=== PATIENT | female | born 2005 | race Caucasian/White ===

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

== ENCOUNTER 2023-04-11 12:56 | Emergency (ER) | payer OTHER, SELFPAY ==
[2023-04-11 13:10] VITALS: BP 119/69; PULSE 72; RESP 18; TEMP 37.3; O2SAT 99
--- NOTE | 2023-04-11 13:19 | ED.EAR ---
HPI - Ear Problem General Chief complaint: Ear Stated complaint: Dizziness,Multiple Complaints Time Seen by Provider: 04/11/23 13:20 Source: patient Mode of arrival: ambulatory Limitations: no limitations History of Present Illness HPI Narrative: 18-year-old female presented for complaint of dizziness, bilateral ear pain, and vomiting since yesterday. Dizziness is worse with changing positions and head movements. She denies associated abdominal pain, diarrhea, fevers or chills. States vomiting is not necessarily associated with dizziness. States she has dizzy episodes every month. Has not taken anything for symptoms. Started lamictal about 2 months ago. MD Complaint: ear pain Related Data Home Medications Medication Instructions Recorded Confirmed escitalopram oxalate 20 mg tablet 20 mg PO DAILY 11/06/19 04/11/23 lamotrigine 25 mg tablet 25 mg PO DAILY 04/11/23 04/11/23 Allergies Allergy/AdvReac Type Severity Reaction Status Date / Time clindamycin Allergy Intermediate Hives / Verified 04/11/23 12:59 Red Face Review of Systems Review of Systems: CONSTITUTIONAL: Denies malaise, chills, or fever. EYES: Denies visual changes, redness, or discharge. ENT: Denies rhinorrhea, congestion, sinus pain, and sore throat. Reports ear pain CARDIOVASCULAR: Denies chest pain, palpitations, or edema. RESPIRATORY: Denies cough or dyspnea. GASTROINTESTINAL: Reports nausea, vomiting, Denies abdominal pain, diarrhea SKIN: Denies rash or itching. MUSCULOSKELETAL: Denies myalgia. NEUROLOGIC: Denies headache. Reports dizziness All systems reviewed & are unremarkable except as noted in HPI and below PMFSH Past Medical History Medical History Anxiety Surgical History Surgical History History of tonsillectomy and adenoidectomy Social History Social History Smoking status: Never smoker Living arrangements: with family Occupation/Education: student Gender identity (if verbalized by the patient): Female Comments At time of signature, agree with nursing past medical, surgical, social and family history. There is no relevant family history pertinent to the presenting complaint Exam Narrative: GENERAL: Well-appearing, well-nourished, and in no acute distress. HEAD: Normocephalic EYES: PERRLA, EOMI, conjunctivae clear ENT: Nares clear. Mucous membranes moist. TMs pearly pan with normal light reflex bilaterally; no tragal tenderness. Oropharynx not erythematous. Tonsils absent. NECK: Supple. No lymphadenopathy CHEST: Clear to auscultation, breath sounds equal. HEART: Regular rate and rhythm. No murmur heard. ABD: soft flat nontender SKIN: Warm, dry, no rash. NEURO: Alert and oriented x3. No deficits. PSYCH: Normal mood and affect Course Course Emergency Course: Patient is aware of diagnosis, understands and agrees to treatment plan. Anticipatory guidance given. Patient agrees to follow-up as directed and is aware of reasons to seek care at the emergency department. Portions of this record may have been created with voice recognition software Level of Care: Express Care Visit Vital Signs Vital signs: Vital Signs Temperature 99.2 F 04/11/23 13:10 Pulse Rate 72 04/11/23 13:10 Respiratory Rate 18 04/11/23 13:10 Blood Pressure 119/69 04/11/23 13:10 Pulse Oximetry 99 04/11/23 13:10 Oxygen Delivery Room Air 04/11/23 13:10 Temperature 99.2 F 04/11/23 13:10 Pulse Rate 72 04/11/23 13:10 Respiratory Rate 18 04/11/23 13:10 Blood Pressure 119/69 04/11/23 13:10 Pulse Oximetry 99 04/11/23 13:10 Oxygen Delivery Room Air 04/11/23 13:10 Reviewed Medical Decision Making MDM Narrative Medical decision making narrative: Discussed physical exam findings, advised supportive measures and signs/symptoms
== END 2023-04-11 13:38 | disposition home or self-care (01) ==
PROVIDERS: Emergency Provider Nurse Practitioner Family; PCP Physician Assistant
DX: R42 Dizziness and giddiness (principal); R11.10 Vomiting, unspecified; F41.9 Anxiety disorder, unspecified
CPT/HCPCS: 99213; G0463

== ENCOUNTER 2023-11-12 08:19 | Emergency (ER) | payer OTHER, SELFPAY ==
[2023-11-12] VITALS (9 sets, daily range): BP systolic 109–136; BP diastolic 67–97; PULSE 71–119; RESP 11–20; TEMP 36.5–37.1; O2SAT 97–100
[2023-11-12 09:04] LABS: Basophils Percent Auto 0.2 % (0.2-1.2); Eosinophils Percent Auto 0.2 % (0-4.4); Hematocrit 42.5 % (37.0-47.0); Hemoglobin 14.1 g/dL (12.0-15.0); Immature Granulocyte Absolute 0.02 K/mm3 (0.00-0.031); Immature Granulocyte Percent A 0.2 % (0-0.5); Lymphocytes Absolute Auto 0.66 K/mm3 (0.9-3.2); Lymphocytes Percent Auto 5.5 % (18.3-44.2); Mean Corpuscular HGB Conc 33.2 g/dl (32-36); Mean Corpuscular Hemoglobin 28.2 pg (26-34); Mean Platelet Volume 10.2 fl (7.4-10.4); Monocytes Absolute Auto 0.5 K/mm3 (0.1-0.6); Monocytes Percent Auto 3.8 % (2.6-8.5); Neutrophils Absolute Auto 10.9 K/mm3 (1.3-6.7); Neutrophils Percent Auto 90.1 % (45.5-73.1); Platelet Count Result 251 k/mm3 (150-375); Red Cell Distribution Width 12.3 % (11.5-14.5); White Blood Count 12.1 K/mm3 (4.5-10.0)
[2023-11-12 09:10] LABS: Appearance Urine Turbid (Clear); Bacteria Urine 4+ /hpf; Bilirubin Urine Negative (Negative); Blood Urine Negative (Negative); Color Urine Yellow (Yellow); Glucose Urine UA Negative (Negative); Ketones Urine 2+ mg/dL (Negative); Leukocyte Esterase Ur 1+ LEU/UL (Negative); Need Manual Microscopic Reviewed; Nitrate Urine Negative (Negative); Non Pathogenic Casts 0-2; Protein Urine 1+ mg/dL (Negative); Specific Grav Ur 1.033 (1.001-1.035); Squamous Epithelial Cell Urine Many /hpf (Few); WBC Urine >100 /hpf; pH Urine 6.5 (5.0-9.0)
[2023-11-12 09:12] LABS: Add Urine Microscopic? YES
--- NOTE | 2023-11-12 09:13 | ED.NAVMDI ---
HPI - Nausea/Vomiting/Diarrhea General Chief complaint: Nausea/Vomiting/Diarrhea Stated complaint: N/V/D Time Seen by Provider: 11/12/23 08:50 History of Present Illness HPI Narrative: 18-year-old female presenting to the emergency department for evaluation of nausea vomiting and diarrhea that started approximately 10:00 p.m. last night. Patient states she has been attempting to eat ice chips but she is still having emesis from that. Patient does complain of suprapubic abdominal pain and epigastric pain. Patient denies any prior abdominal surgical history. Related Data Home Medications Medication Instructions Recorded Confirmed escitalopram oxalate 20 mg tablet 20 mg PO DAILY 11/06/19 04/11/23 lamotrigine 25 mg tablet 25 mg PO DAILY 04/11/23 04/11/23 Allergies Allergy/AdvReac Type Severity Reaction Status Date / Time clindamycin Allergy Intermediate Hives / Verified 11/12/23 08:35 Red Face Review of Systems Review of Systems: All systems reviewed & are unremarkable except as noted in HPI and below PMFSH Past Medical History Medical History Anxiety Surgical History Surgical History History of tonsillectomy and adenoidectomy Social History Social History Smoking status: Never smoker Living arrangements: with family Occupation/Education: student Gender identity (if verbalized by the patient): Female Exam Narrative: APPEARANCE: Well appearing, no pain, no distress, well-nourished. HEAD: normocephalic, atraumatic. EYES: PERRLA/EOMI, conjunctivae clear. NOSE: Normal no drainage NECK: Supple. No adenopathy, no masses. RESPIRATORY: Airway patent, respirations nonlabored. Clear to auscultation bilaterally, no rales, rhonchi, wheezing. CARDIOVASCULAR: Regular rate and rhythm without murmurs rubs or gallops. ABDOMINAL: Soft, suprapubic and epigastric abdominal tenderness to palpation MUSCULOSKELETAL: Moves all extremities. Strength/ROM intact, No edema, No calf tenderness. NEURO: Alert. Cranial nerves II through XII intact. Grossly intact SKIN: Warm, dry. Normal Color Course Course Emergency Course: 18-year-old female presenting to the emergency department for evaluation of nausea vomiting and diarrhea. Patient was afebrile But does have a leukocytosis of 12.1. Stable hemoglobin. Patient's UA was concerning for urinary tract infection and patient was treated with 1 g of IV Rocephin. Patient states she is now tolerating p.o. and has kept down water and apple juice. Patient is comfortable the plan for discharge to home. Patient was educated on reasons to return to the emergency department. All questions and concerns were addressed. Vital Signs Vital signs: Vital Signs Temperature 97.7 F 11/12/23 08:26 Pulse Rate 119 H 11/12/23 08:26 Respiratory Rate 18 11/12/23 08:26 Blood Pressure 136/85 11/12/23 08:26 Pulse Oximetry 97 11/12/23 08:26 Oxygen Delivery Room Air 11/12/23 08:26 Temperature 98.7 F 11/12/23 08:36 Pulse Rate 94 11/12/23 11:59 Respiratory Rate 20 11/12/23 11:59 Blood Pressure 113/79 11/12/23 11:59 Pulse Oximetry 99 11/12/23 11:59 Oxygen Delivery Room Air 11/12/23 08:36 MDM - Nausea/Vomiting/Diarrhea Differential Diagnosis Differential diagnosis: Likely traveler's diarrhea and gastroenteritis Lab Data Attestation: I reviewed the patient's lab results. 11/12/23 08:50 11/12/23 08:50 Labs: Lab Results 11/12/23 11/12/23 Range/Units 08:29 08:50 WBC 12.1 H (4.5-10.0) K/mm3 RBC 5.00 (4.2-5.4) M/mm3 Hgb 14.1 (12.0-15.0) g/dL Hct 42.5 (37.0-47.0) % MCV 85.0 (80-100) fl MCH 28.2 (26-34) pg MCHC 33.2 (32-36) g/dl RDW 12.3 (11.5-14.5) % Plt Count 251 (150-375) k/mm3 MPV 10.2 (7.4-10.4)
[2023-11-12 09:27] LABS: Alanine Aminotransferase 35 U/L (6-35); Albumin Level 4.5 g/dL (3.5-5.1); Alkaline Phosphatase 92 U/L (38-126); Anion Gap 9 mmol/L (8-16); Aspartate Amino Transferase 32 U/L (14-36); Bilirubin,Total 0.6 mg/dL (0.2-1.3); Blood Urea Nitrogen 12 mg/dL (7-17); Carbon Dioxide 25 mmol/L (22-30); Chloride 105 mmol/L (98-107); Estimated CRCL calculation 138 ml/min; Estimated Glomerular Filt Rate > 60; Glucose 127 mg/dL (65-110); Lipase 40 U/L (23-300); Potassium 3.9 mmol/L (3.4-5.0); Sodium 139 mmol/L (137-145)
[2023-11-12] MEDS: ONDANSETRON INJ 4 MG/2 ML VIAL IV PUSH (09:27)
[2023-11-12] MEDS: SODIUM CHLORIDE 0.9% IV 1,000 ML 999 ML IV CONT (09:27)
== END 2023-11-12 12:01 | disposition home or self-care (01) ==
PROVIDERS: Emergency Provider Emergency Medicine; PCP Physician Assistant
DX: R11.2 Nausea with vomiting, unspecified (principal); N39.0 Urinary tract infection, site not specified
CPT/HCPCS: 36415; 80053; 81001; 81025; 83690; 85025; 87086; 87088; 96365; 96375; 99284; J0696; J2405; J7030

== ENCOUNTER 2024-02-06 17:35 | Emergency (ER) | payer OTHER, SELFPAY ==
--- NOTE | ~2024-02-06 | XR_ITS ---
EXAMINATION: XR ankle RT min 3V DATE: 02/06/2024 18:04 INDICATION: Lateral right ankle pain. Fall. TECHNIQUE: 4 views of right ankle were obtained. COMPARISON: Right foot radiographs 04/19/2015 FINDINGS: Bone alignment is normal. No fracture. There is mild osteoarthritis of talonavicular joint. IMPRESSION: 1. No fracture. Reviewed, dictated and finalized at location E. IMPRESSION: 1. No fracture.
[2024-02-06 17:46] VITALS: BP 119/68; PULSE 92; RESP 16; TEMP 37.3; O2SAT 100
--- NOTE | 2024-02-06 17:48 | ED.LOWEXIN ---
HPI - Extremity Injury (Lower) General Chief Complaint: Extremity Injury, Lower Stated Complaint: right ankle pain Time Seen by Provider: 02/06/24 18:18 Source: patient and RN notes reviewed Mode of arrival: ambulatory Limitations: no limitations History of Present Illness HPI Narrative: 18-year-old female presents concern for right ankle pain. Reports yesterday she rolled her ankle while stepping off reports. She reports level or ankle pain at rest and worsening pain with weight-bearing. She reports she used ice with minimal relief. She has not taken any [id number] medications. She denies open skin, decreased strength, sensation, range of motion MD complaint: ankle injury Related Data Home Medications Medication Instructions Recorded Confirmed escitalopram oxalate 20 mg tablet 20 mg PO DAILY 11/06/19 02/06/24 drospirenone 3 mg-ethinyl 1 tablet PO DAILY 02/06/24 02/06/24 estradiol 0.02 mg tablet lamotrigine 200 mg tablet 200 mg PO DAILY 02/06/24 02/06/24 Allergies Allergy/AdvReac Type Severity Reaction Status Date / Time clindamycin Allergy Intermediate Hives / Verified 02/06/24 17:37 Red Face Review of Systems Review of Systems: CONSTITUTIONAL: Denies malaise, chills, sweats, or fever. SKIN: Denies rash or itching, open skin, laceration, abrasion, redness, warmth MUSCULOSKELETAL: Reports right ankle pain and swelling NEUROLOGIC: Denies numbness, weakness All systems reviewed & are unremarkable except as noted in HPI and below PMFSH Past Medical History Medical History Anxiety Surgical History Surgical History History of tonsillectomy and adenoidectomy Social History Social History Smoking status: Never smoker Living arrangements: with family Occupation/Education: student Gender identity (if verbalized by the patient): Female Comments At time of signature, agree with nursing past medical, surgical, social and family history. There is no relevant family history pertinent to the presenting complaint Exam Narrative: GENERAL: Well-appearing, well-nourished, and in no acute distress. HEAD: Normocephalic, atraumatic. EYES: PERRLA, conjunctivae clear NECK: Supple. CHEST: Speaks in full sentences. No respiratory distress. HEART: Regular rate and rhythm. Normal and equal peripheral pulses. EXTREMITIES: Right ankle has grossly normal strength and sensation, grossly normal range of motion. Minimal edema, no ecchymosis. Normal sensation with sensitivity to light touch and pain. No open wounds, no skin tenting, no devitalized tissue or atrophy, no trophic changes, no obvious deformity, alignment normal, nearby joints and structures intact. Distal pulses palpable and equal bilaterally, skin warm, dry, pink. Capillary refill less than 3 seconds. SKIN: Warm, dry, no rash. NEURO: Alert and oriented x3. PSYCH: Normal mood and affect Course Course Emergency Course: Patient is aware of diagnosis, understands and agrees to treatment plan. Anticipatory guidance given. Patient agrees to follow-up as directed and is aware of reasons to seek care at the emergency department. Portions of this record may have been created with voice recognition software Level of Care: Express Care Visit Vital Signs Vital signs: Vital Signs Temperature 99.1 F 02/06/24 17:46 Pulse Rate 92 02/06/24 17:46 Respiratory Rate 16 02/06/24 17:46 Blood Pressure 119/68 02/06/24 17:46 Pulse Oximetry 100 02/06/24 17:46 Oxygen Delivery Room Air 02/06/24 17:46 Temperature 99.1 F 02/06/24 17:46 Pulse Rate 92 02/06/24 17:46 Respiratory Rate 16 02/06/24 17:46 Blood Pressure 119/68 02/06/24 17:46 Pulse Oximetry 100 02/06/24 17:46 Oxygen Delivery Room Air 02/06/24 17:46 Reviewed. MDM - Extremity Injury (Lower
== END 2024-02-06 18:36 | disposition home or self-care (01) ==
PROVIDERS: Emergency Provider Nurse Practitioner; PCP Physician Assistant
DX: S93.401A Sprain of unspecified ligament of right ankle, initial encounter (principal); S96.911A Strain of unspecified muscle and tendon at ankle and foot level, right foot, initial encounter; X50.9XXA Other and unspecified overexertion or strenuous movements or postures, initial encounter; F41.9 Anxiety disorder, unspecified
CPT/HCPCS: 73610; 99213; G0463

== ENCOUNTER 2024-09-02 23:02 | Emergency (ER) | payer OTHER, SELFPAY ==
--- NOTE | ~2024-09-02 | XR_ITS ---
EXAMINATION: XR chest 2V DATE: 09/02/2024 23:28 INDICATION: Chest pain and difficulty breathing TECHNIQUE: frontal and lateral views of the chest were obtained. COMPARISON: None FINDINGS: Mildly decreased bilateral lung volumes. No focal airspace opacities, pulmonary edema, pleural effusi on or pneumothorax. The cardiomediastinal silhouette is normal. Bones are unremarkable. IMPRESSION: 1. Mildly decreased lung volumes with no acute cardiopulmonary disease. Reviewed, dictated and finalized at location A.
--- NOTE | 2024-09-02 23:03 | ECG_ITS ---
Test Date: 2024-09-02 23:13:54 Measurements Intervals [place] Rate: 89 P: 46 SC: 108 QRS: 48 QRSD: 90 T: 19 QT: 377 QTc: 459 Interpretive Statements SINUS RHYTHM WITH SHORT SC INTERVAL NONSPECIFIC T-WAVE ABNORMALITY No previous ECG available for comparison Electronically Signed On 09-03-2024 11:33:54 CDT by Howard Palmer M.D.
[2024-09-02 23:11] VITALS: BP 159/98; PULSE 82; RESP 13; TEMP 36.7; O2SAT 100
[2024-09-02 23:15] VITALS: O2SAT 98
[2024-09-02 23:16] VITALS: PULSE 83
[2024-09-02 23:23] LABS: Basophils Percent Auto 0.3 % (0.2-1.2); Eosinophils Absolute Auto 0.2 K/mm3 (0-0.3); Hematocrit 39.2 % (37.0-47.0); Hemoglobin 13.4 g/dL (12.0-15.0); Immature Granulocyte Absolute 0.03 K/mm3 (0.00-0.031); Immature Granulocyte Percent A 0.3 % (0-0.5); Lymphocytes Percent Auto 36.2 % (18.3-44.2); Mean Corpuscular HGB Conc 34.2 g/dl (32-36); Mean Corpuscular Hemoglobin 29.5 pg (26-34); Mean Corpuscular Volume 86.3 fl (80-100); Mean Platelet Volume 9.9 fl (7.4-10.4); Monocytes Absolute Auto 0.9 K/mm3 (0.1-0.6); Monocytes Percent Auto 7.8 % (2.6-8.5); Neutrophils Absolute Auto 5.9 K/mm3 (1.3-6.7); Neutrophils Percent Auto 53.4 % (45.5-73.1); Platelet Count Result 240 k/mm3 (150-375); Red Blood Count 4.54 M/mm3 (4.2-5.4); Red Cell Distribution Width 11.9 % (11.5-14.5); White Blood Count 11.1 K/mm3 (4.5-10.0)
[2024-09-02 23:34] LABS: Partial Thromboplastin Time 28.1 Seconds (22.3-36.8)
[2024-09-02 23:40] LABS: Alanine Aminotransferase 25 U/L (6-35); Albumin Level 4.2 g/dL (3.5-5.1); Alkaline Phosphatase 94 U/L (38-126); Anion Gap 10 mmol/L (4-12); Aspartate Amino Transferase 25 U/L (14-36); Bilirubin,Total 0.3 mg/dL (0.2-1.3); Blood Urea Nitrogen 10 mg/dL (7-17); Carbon Dioxide 24 mmol/L (22-30); Chloride 106 mmol/L (98-107); Estimated CRCL calculation 109 ml/min; Estimated Glomerular Filt Rate > 60; Glucose 94 mg/dL (65-110); Lipase 93 U/L (23-300); Potassium 4.1 mmol/L (3.4-5.0); Sodium 140 mmol/L (137-145)
[2024-09-02] MEDS: LORazepam INJ (*CRX) 2 MG/ML VIAL 0.5 MG IV PUSH (23:41)
[2024-09-02 23:44] LABS: Troponin I < 0.012 ng/mL (0.000-0.034)
--- NOTE | 2024-09-03 00:01 | ED.CHESTPAIN ---
HPI - Chest Pain General Chief Complaint: Chest Pain Stated Complaint: chest pain and difficulty breathing Time Seen by Provider: 09/02/24 23:07 Source: patient Mode of arrival: ambulatory Limitations: no limitations History of Present Illness HPI narrative: 19-year-old with a history of anxiety, pots here with a complaint of midsternal chest pain which started few minutes ago. Patient states the pain is midsternal. She denies any shortness of breath. No history of fever or chills. Denies any cough. MD complaint: chest pain Onset (ago): minute(s) Timing of current episode: constant Prior episodes: Yes Pain location: parasternal Pain radiation: none Severity: moderate Quality: aching Relieving factors: nothing Exacerbating factors: nothing Treatment prior to arrival: none Risk Factors Coronary artery disease risk factors: none Related Data Home Medications Medication Instructions Recorded Confirmed escitalopram oxalate 20 mg tablet 20 mg PO DAILY 11/06/19 02/06/24 drospirenone 3 mg-ethinyl 1 tablet PO DAILY 02/06/24 02/06/24 estradiol 0.02 mg tablet lamotrigine 200 mg tablet 200 mg PO DAILY 02/06/24 02/06/24 Allergies Allergy/AdvReac Type Severity Reaction Status Date / Time clindamycin Allergy Intermediate Hives / Verified 02/06/24 17:37 Red Face Review of Systems Review of Systems: All systems reviewed & are unremarkable except as noted in HPI and below Constitutional: Constitutional: Reports no additional constitutional complaints Eyes: Eyes: Reports no additional eye complaints ENT: Reports system reviewed and no additional complaints, except as documented Cardiovascular: Cardiovascular: Reports as per HPI Respiratory: Respiratory: Reports no additional respiratory complaints Gastrointestinal: Gastrointestinal: Reports no additional gastrointestinal complaints Musculoskeletal: Musculoskeletal: Reports no additional musculoskeletal complaints Integumentary/Breasts: Skin/Breast: Reports system reviewed and no additional complaints, except as docu PMFSH Past Medical History Medical History Anxiety Surgical History Surgical History History of tonsillectomy and adenoidectomy Social History Social History Smoking status: Never smoker Living arrangements: with family Occupation/Education: student Gender identity (if verbalized by the patient): Female Exam Narrative: GENERAL: Well-appearing, well-nourished, and in no acute distress. HEAD: Normocephalic, atraumatic. EYES: PERRLA and EOMI. ENT: Nares clear, no rhinorrhea or epistaxis. Mucous membranes moist. NECK: Supple. CHEST: Clear to auscultation. No respiratory distress. HEART: Regular rate and rhythm. No murmur heard. Normal peripheral pulses. ABDOMEN: Soft, nontender, nondistended, normal active bowel sounds. EXTREMITIES: Normal range of motion. No edema. SKIN: Warm, dry, no rash. NEURO: No focal deficits. Alert and oriented x3. PSYCH: Normal mood and affect. Course Course Emergency Course: Patient comfortably resting IV Ativan. Informed about the lab work, EKG and chest x-ray findings we did she states she is feeling much better and feels comfortable going home. Advised to follow with the primary doctor Vital Signs Vital signs: Vital Signs Temperature 36.7 C 09/02/24 23:11 Pulse Rate 82 09/02/24 23:11 Respiratory Rate 13 09/02/24 23:11 Blood Pressure 159/98 H 09/02/24 23:11 Pulse Oximetry 100 09/02/24 23:11 Oxygen Delivery Room Air 09/02/24 23:11 Temperature 36.7 C 09/02/24 23:11 Pulse Rate 83 09/02/24 23:16 Respiratory Rate 13 09/02/24 23:11 Blood Pressure 159/98 H 09/02/24 23:11 Pulse Oximetry 98 09/02/24 23:15 Oxygen Delivery Room Air 09/02/24 23:15 MDM - Chest Pain Differential Diagnosis
[2024-09-03 00:25] VITALS: BP 160/81; PULSE 77; RESP 16; O2SAT 100
== END 2024-09-03 00:27 | disposition home or self-care (01) ==
PROVIDERS: Emergency Medicine; Emergency Provider Family Medicine; PCP Physician Assistant
DX: R07.89 Other chest pain (principal); F41.9 Anxiety disorder, unspecified
CPT/HCPCS: 36415; 71046; 80053; 83690; 84484; 85025; 85610; 85730; 93005; 96374; 99284; J2060

== ENCOUNTER 2025-06-21 19:09 | Emergency (ER) | payer OTHER, SELFPAY ==
--- NOTE | 2025-06-21 19:14 | ED.ABDPAIN ---
HPI - Abdominal Pain General Stated Complaint: Abdominal Pain Time Seen by Provider: 06/21/25 19:09 Source: patient Mode of arrival: ambulatory Limitations: no limitations History of Present Illness HPI narrative: Patient is a 20-year-old female who presents with abdominal pain for 2 days. Patient has had abdominal pain multiple times over the past few years and been seen in the ER. Patient never followed up with PCP as of last note. Patient states she has had 1 episode of vomiting. Reports she was having hourly bouts of diarrhea yesterday but only 1 every few hours today. Patient was able to tolerate a turkey sandwich today. Denies any history of kidney stones or diverticulitis. Patient still has appendix and gallbladder. Patient has taken Tylenol and ibuprofen with no relief. Denies any fever, chills. Related Data Home Medications ?Medication ?Instructions ?Recorded ?Confirmed ?Last Taken ?Type escitalopram oxalate 20 mg tablet 20 mg PO DAILY 11/06/19 02/06/24 Unknown History drospirenone 3 mg-ethinyl 1 tablet PO DAILY 02/06/24 02/06/24 Unknown History estradiol 0.02 mg tablet lamotrigine 200 mg tablet 200 mg PO DAILY 02/06/24 02/06/24 Unknown History buspirone 10 mg tablet mg 06/21/25 Unknown History Allergies Allergy/AdvReac Type Severity Reaction Status Date / Time clindamycin Allergy Intermediate Hives / Verified 06/21/25 19:11 Red Face Review of Systems Review of Systems: All systems reviewed & are unremarkable except as noted in HPI and below Constitutional: Constitutional: Denies body ache(s), Denies chills, Denies fatigue, Denies fever(s), Denies headache(s), Denies malaise and Denies weakness Eyes: Eyes: Denies blurry vision, Denies irritation and Denies loss of vision ENT: Denies otalgia, Denies headache(s), Denies nasal discharge, Denies sinus pain and Denies sore throat Cardiovascular: Cardiovascular: Denies chest pain, Denies irregular heart rhythm and Denies dyspnea Respiratory: Respiratory: Denies dyspnea Gastrointestinal: Gastrointestinal: Reports abdominal pain, Denies melena, Denies hematochezia, Reports diarrhea, Reports nausea and Reports vomiting Musculoskeletal: Musculoskeletal: Denies back pain, Denies myalgias and Denies arthralgias Integumentary/Breasts: Skin/Breast: Denies pruritus and Denies rash Neurologic: Denies headache(s), Denies loss of vision and Denies weakness Psychiatric: Psychiatric: Reports no additional psychiatric complaints Endocrine: Endocrine: Denies fatigue PMFSH Past Medical History Medical History Anxiety Surgical History Surgical History History of tonsillectomy and adenoidectomy Social History Social History Smoking status: Never smoker Living arrangements: with family Occupation/Education: student Gender identity (if verbalized by the patient): Female Comments At time of signature, agree with nursing past medical, surgical, social and family history. There is no relevant family history pertinent to the presenting complaint. Exam Const: General: cooperative, healthy appearing, comfortable, no acute distress and well nourished Nutritional Appearance: well nourished Orientation/consciousness: patient oriented x3 Limitations: no limitations HENMT: Head: normal to inspection, normocephalic and atraumatic Ears: hearing grossly normal bilaterally and external ears normal Face/Nose/Sinus: Normal external nose present, normal facial exam and face symmetric Face and sinus: normal facial exam and face symmetric Mouth: Yes lip normal Eyes: General: appearance normal, both eyes and all related structures Alignment and Position: alignment normal and position normal Periorbital: periorbital findings normal Eyelids: eyelids normal Pupils: Equal, round and reactive pupils present EOM: EOMs intact bilaterally Neck: Neck: normal visual inspection, full ROM and supple Chest: Chest palpation & inspection: normal inspection of the chest Resp: Effort & Inspection: normal respiratory effort and able to speak in complete sentences Auscultation: clear to auscultation bilaterally Cardio: Rate: regular rate Rhythm: regular rhythm Heart sounds: S1 normal heart sound present and S2 normal heart sound present GI: Inspection: normal to inspection GI Palp: Yes abdominal tenderness, Yes Soft to palpation, Yes Tenderness to palpation present (GI) (Generalized), No Guarding due to palpation present (GI) and No Rebound tenderness present Auscultation: Hyperactive bowel sounds present Rectal Exam: deferred Skin: General skin exam: normal color and no rashes or lesions noted Neuro: General: patient oriented x3 and moves all extremities Cranial nerves: Yes Equal, round and reactive pupils present Speech: normal speech Gait exam (Neuro): Normal gait present Extrem: General: normal to inspection, full ROM and no edema Psych: Appearance: grossly normal and well kempt Mental Status: mental status grossly normal Speech and movement: Normal speech and movement present Affect: normal affect Attitude: cooperative Thought process: Normal thought process present Course Course Emergency Course: Patient being transferred [facility] for further workup and evaluation. Patient requiring labs and imaging to rule out any intra-abdominal infections. Portions of this record may have been created with voice recognition software Level of Care: Express Care Visit Vital Signs Vital signs: Reviewed Transfer Transfered to: [facility] Transportation: Other (Private auto) Transfer rationale: Patient being transferred [facility] for further workup and evaluation. Patient requiring labs and imaging to rule out any intra-abdominal infections. Accepting physician: Rupal RIVERA MDM - Abdominal Pain MDM Narrative Medical decision making narrative: Patient being transferred [facility] for further workup and evaluation. Patient requiring labs and imaging to rule out any intra-abdominal infections. Differential Diagnosis Differential diagnosis: Likely abdominal pain, acute appendicitis, calculus of kidney, diverticulitis, gastroenteritis, small bowel obstruction and other (Cholecystectomy) Medical Records Attestation: I reviewed the patient's medical records. Discharge Plan Discharge Clinical Impression: Abdominal pain, Diarrhea Patient Disposition: Acute Care Hospital Condition: Stable Patient Language: [place] Prescriptions: No Action buspirone 10 mg tablet escitalopram oxalate 20 mg tablet 20 mg PO DAILY lamotrigine 200 mg tablet 200 mg PO DAILY drospirenone-ethinyl estradiol 3-0.02 mg tablet 1 tablet PO DAILY Follow-up/Referrals: Misti,MIGUEL Saab [Primary Care Provider] - Time of Disposition: 19:34
[2025-06-21 19:15] VITALS: BP 141/86; PULSE 102; RESP 20; TEMP 37.3; O2SAT 96
== END 2025-06-21 19:30 | disposition short-term general hospital (02) ==
PROVIDERS: Emergency Provider Nurse Practitioner Family; PCP Physician Assistant
DX: R10.9 Unspecified abdominal pain (principal); R19.7 Diarrhea, unspecified; F41.9 Anxiety disorder, unspecified
CPT/HCPCS: 99212; G0463

== ENCOUNTER 2025-06-21 19:43 | Emergency (ER) | payer OTHER, SELFPAY ==
--- NOTE | ~2025-06-21 | CT_ITS ---
EXAMINATION: CT abdomen pelvis w con DATE: 06/21/2025 21:26 INDICATION: Right flank pain. Bilateral lower quadrant pain. TECHNIQUE: Computed tomography (CT) of the abdomen and pelvis was performed with 100 mL Omnipaque-350 intravenous contrast. Automated exposure control and iterative reconstruction technique were employe d. The dose-length product was 1056.29 mGy-cm. COMPARISON: None FINDINGS: Lung bases are clear. Heart size is normal. No pericardial or pleural effusion. Diffuse hepatic steat osis with focal sparing along the gallbladder fossa. Gallbladder, spleen, pancreas, bilateral adrenal glands and kidneys are normal. Bowels including the appendix are normal. Bladder, retroverted uterus and bilateral adnexa are unremarkable. Trace amount of likely physiologic free fluid in the cul-de-s ac. No pathologically enlarged abdominal or pelvic lymphadenopathy. Bones are unremarkable. IMPRESSION: 1. Diffuse hepatic steatosis. No acute intra-abdominal/pelvic process. Reviewed, dictated and finalized at location A.
--- OUTSIDE RECORDS SUMMARY | 2025-06-21 19:44 | XMS_ITS | Clinical Summary ---
Author Organization [facility] Address [address] [place] [id number] Care Team Providers Care Television Installer Name Role Phone None, Provider MD Primary Care Provider Unavaila ble Allergies Active Allergy Reactions Criticality Noted Date Comments Clindamycin Hives Low 12/11/2022 Medications escitalopram (LEXAPRO) 20 MG tablet Take 20 mg by mouth daily. 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 Gender Identity Not on file Sexual Orientation Not on file Last Filed Vital Signs Vital Sign Reading Time Taken Comments Blood Pressure 130/81 12/12/2022 7:56 AM HAND PLATE STACKER Pulse 78 12/12/2022 7:56 AM HAND PLATE STACKER Temperature 36.8 C (98.2 F) 12/12/2022 7:56 AM HAND PLATE STACKER Respiratory Rate 18 12/12/2022 7:56 AM HAND PLATE STACKER Oxygen Saturation 98% 12/12/2022 7:56 AM HAND PLATE STACKER Inhaled Oxygen Concentration - - Weight 89.9 kg (198 lb 3.1 oz) 12/11/2022 9:46 P M HAND PLATE STACKER Height 162.6 cm (5' 4) 12/11/2022 9:46 PM HAND PLATE STACKER Body Mass Index 34.02 12/11/2022 9:46 PM HAND PLATE STACKER Plan of Treatment Health Maintenance Due Date Last Done Comments Cervical Cancer Screening Pap Smear (Age 21 to 29) Every 3 Years 2003 Cervical Cancer Screening 2003 Annual Physical 2006 Hepatitis C 2021 DTaP, Tdap and Td Vaccines (7 - Td or Tdap) 06/04/2024 06/04/2014, 03/28/2007, 06/19/2004, Additional history exists COVID-19 Vaccine ( season) 2024 03/23/2021, 03/02/2021 Pneumococcal Vaccine: Pediatrics (0 to 5 Years) and At-Risk Patients (6 to 49 Years) Aged Out 2003 No longer eligible based on patient's age to complete this topic Hepatitis B Vaccines Completed 2003, 2003, 2003 HPV Vaccines Completed 08/12/2017, 06/25/2016 Meningococcal Vaccine Completed 09/05/2020, 014 Meningococcal B Vaccine Completed 02/01/2021, 09/05 RSV Immunizations Under 20 Months Aged Out No longer eligible based on patient's age to complete this topic Insurance Care Teams Television Installer Relationship Specialty Start Date End Date None, Provider, MD PCP - General UNKNOWN PHYSICIAN SPECIALTY 12/11/22
[2025-06-21 19:50] VITALS: BP 141/85; PULSE 96; RESP 20; TEMP 36.7; O2SAT 98
[2025-06-21 20:17] LABS: BEDSIDEPREGUCG Negative (Negative)
[2025-06-21 20:21] LABS: Hematocrit 39.7 % (37.0-47.0); Hemoglobin 13.6 g/dL (12.0-15.0); Immature Granulocyte Percent A 0.1 % (0-0.5); Lymphocytes Absolute Auto 3.42 K/mm3 (0.9-3.2); Mean Corpuscular HGB Conc 34.3 g/dl (32-36); Mean Corpuscular Hemoglobin 29.3 pg (26-34); Mean Corpuscular Volume 85.6 fl (80-100); Nucleated Red Blood Cells Absolute Auto 0.000 K/mm3 (0.0-0.012); Nucleated Red Blood Cells Perc 0.0 % (0.0-0.2); Platelet Count Result 239 k/mm3 (150-375); Red Blood Count 4.64 M/mm3 (4.2-5.4); White Blood Count 9.4 K/mm3 (4.5-10.0)
[2025-06-21 20:27] LABS: Add Urine Microscopic? YES; Appearance Urine Cloudy (Clear); Glucose Urine UA Negative (Negative); Leukocyte Esterase Ur 1+ LEU/UL (Negative); Nitrate Urine Negative (Negative); Non Pathogenic Casts 0-2; Specific Grav Ur 1.032 (1.001-1.035)
[2025-06-21 20:49] LABS: Alanine Aminotransferase 74 U/L (6-35); Albumin Level 4.1 g/dL (3.5-5.1); Alkaline Phosphatase 77 U/L (38-126); Anion Gap 11 mmol/L (4-12); Aspartate Amino Transferase 66 U/L (14-36); Bilirubin,Total 0.3 mg/dL (0.2-1.3); Blood Urea Nitrogen 9 mg/dL (7-17); Calcium 9.3 mg/dL (8.4-10.2); Carbon Dioxide 22 mmol/L (22-30); Chloride 106 mmol/L (98-107); Estimated CRCL calculation 113 ml/min; Estimated Glomerular Filt Rate > 60; Glucose 134 mg/dL (65-110); Lipase 68 U/L (23-300); Potassium 3.5 mmol/L (3.4-5.0); Sodium 139 mmol/L (137-145); Total Protein 7.3 g/dL (6.3-8.2)
--- NOTE | 2025-06-21 20:50 | ED_ITS ---
HPI - Abdominal Pain General Chief Complaint: Abdominal Pain Stated Complaint: Abdominal pain x 2 days, N/V/D Time Seen by Provider: 06/21/25 20:38 History of Present Illness HPI narrative: 20-year-old female presents emergency department with mother at bedside for abdominal pain, nausea, vomiting and diarrhea for the past 2 days. Patient states the pain was located in the right lower quadrant is now radiating to the left lower quadrant and right flank. She describes the pain as a ?squeezing? in cramping pain. She states the pain is better when she holds her abdomen and worse after having diarrhea. She states she had 2 episodes of vomiting yesterday but has not vomited today. She went to urgent care and was advised to come to the ED for further evaluation. She denies prior abdominal surgeries, fever, cough or congestion, dysuria or hematuria, vaginal discharge, concern for STDs. Related Data Home Medications ?Medication ?Instructions ?Recorded ?Confirmed ?Last Taken ?Type escitalopram oxalate 20 mg tablet 20 mg PO DAILY 11/06/19 02/06/24 Unknown History drospirenone 3 mg-ethinyl 1 tablet PO DAILY 02/06/24 02/06/24 Unknown History estradiol 0.02 mg tablet lamotrigine 200 mg tablet 200 mg PO DAILY 02/06/24 02/06/24 Unknown History buspirone 10 mg tablet mg 06/21/25 Unknown History Allergies Allergy/AdvReac Type Severity Reaction Status Date / Time clindamycin Allergy Intermediate Hives / Verified 06/21/25 19:49 Red Face Review of Systems 2 Review of Systems: All systems reviewed & are unremarkable except as noted in HPI and below PMFSH Past Medical History Medical History Anxiety Surgical History Surgical History History of tonsillectomy and adenoidectomy Social History Social History Smoking status: Never smoker Living arrangements: with family Occupation/Education: student Gender identity (if verbalized by the patient): Female Exam 2 Narrative: GENERAL: Well-appearing, well-nourished, and in no acute distress. HEAD: Normocephalic, atraumatic. EYES: EOMI. ENT: Nares clear, no rhinorrhea or epistaxis. Mucous membranes moist. NECK: Supple. CHEST: Clear to auscultation. No respiratory distress. HEART: Regular rate and rhythm. No murmur heard. Normal peripheral pulses. ABDOMEN: Normoactive bowel sounds. Abdomen soft with mild tenderness to the left lower quadrant, right lower quadrant and CVA region. No rebound, guarding or rigidity. EXTREMITIES: Normal range of motion. No edema. SKIN: Warm, dry, no rash. NEURO: No focal deficits. Alert and oriented x3 Course Vital Signs Vital signs: Vital Signs Temperature 98.1 F 06/21/25 19:50 Pulse Rate 96 06/21/25 19:50 Respiratory Rate 20 06/21/25 19:50 Blood Pressure 141/85 H 06/21/25 19:50 Pulse Oximetry 98 06/21/25 19:50 Temperature 98.1 F 06/21/25 19:50 Pulse Rate 96 06/21/25 19:50 Respiratory Rate 20 06/21/25 19:50 Blood Pressure 141/85 H 06/21/25 19:50 Pulse Oximetry 98 06/21/25 19:50 MDM - Abdominal Pain MDM Narrative Medical decision making narrative: 20-year-old female presents emergency department for 2 days of abdominal pain, N/V/D. Triage vitals with blood pressure 141/85, otherwise unremarkable. Patient is afebrile and nontoxic appearing. Exam is significant for the above. Lab work shows no leukocytosis or anemia. Chemistries with AST of 66 and ALT of 74, patient does have a history of transaminitis. Bilirubin alk-phos are within normal limits. Lipase is normal. UA indicative of UTI with 21-50 white blood cells of 1+ leuk esterase, 1+ bacteria. Urine cultures pending. is negative. CT abdomen pelvis shows diffuse hepatic steatosis with no acute intra-abdominal or pelvic process. Patient and mother at bedside are updated on results. Patient received Toradol, IV fluids and Zofran. On re-evaluation she states she is having persistent abdominal cramping and nausea. A dose of Bentyl and Reglan provided with improvement. She is tolerating po intake. Suspect her symptoms are due to gastroenteritis versus UTI. She is given a dose of IV Rocephin and started on cefdinir. Zofran for nausea for home. Encouraged brat diet, increase fluid intake follow-up with PCP. Discussed strict ED return precautions. She is agreeable with the plan verbalized understanding. Discharged in stable condition. Lab Data 06/21/25 20:12 06/21/25 20:12 Labs: Lab Results 06/21/25 06/21/25 Range/Units 20:12 20:15 WBC 9.4 (4.5-10.0) K/mm3 RBC 4.64 (4.2-5.4) M/mm3 Hgb 13.6 (12.0-15.0) g/dL Hct 39.7 (37.0-47.0) % MCV 85.6 (80-100) fl MCH 29.3 (26-34) pg MCHC 34.3 (32-36) g/dl RDW 12.2 (11.5-14.5) % Plt Count 239 (150-375) k/mm3 MPV 9.9 (7.4-10.4) fl Immature Gran % (Auto) 0.1 (0-0.5) % Neut % (Auto) 54.4 (45.5-73.1) % Lymph % (Auto) 36.5 (18.3-44.2) % [place] % (Auto) 5.9 (2.6-8.5) % Eos % (Auto) 2.7 (0-4.4) % Baso % (Auto) 0.4 (0.2-1.2) % Lymph # (Auto) 3.42 H (0.9-3.2) K/mm3 [place] # (Auto) 0.6 (0.1-0.6) K/mm3 Eos # (Auto) 0.3 (0-0.3) K/mm3 Baso # (Auto) 0.0 (0.0-0.1) K/mm3 Abs Immat Gran (auto) 0.01 (0.00-0.031) K/mm3 Absolute Neuts (auto) 5.1 (1.3-6.7) K/mm3 Absolute Nucleated RBC 0.000 (0.0-0.012) K/mm3 Nucleated RBC % 0.0 (0.0-0.2) % Sodium 139 (137-145) mmol/L Potassium 3.5 (3.4-5.0) mmol/L Chloride 106 (98-107) mmol/L Carbon Dioxide 22 (22-30) mmol/L Anion Gap 11 (4-12) mmol/L BUN 9 (7-17) mg/dL Creatinine 0.79 (0.7-1.0) mg/dL Estim Creat Clear Calc 113 ml/min Estimated GFR > 60 (59 - ) Glucose 134 H (65-110) mg/dL Calcium 9.3 (8.4-10.2) mg/dL Total Bilirubin 0.3 (0.2-1.3) mg/dL AST 66 H (14-36) U/L ALT 74 H (6-35) U/L Alkaline Phosphatase 77 (38-126) U/L Total Protein 7.3 (6.3-8.2) g/dL Albumin 4.1 (3.5-5.1) g/dL Lipase 68 (23-300) U/L Urine Color Yellow (Yellow) Urine Appearance Cloudy H (Clear) Urine pH 6.0 (5.0-9.0) Ur Specific [place] 1.032 (1.001-1.035) Urine Protein Trace (Negative) mg/dL Urine Glucose (UA) Negative (Negative) mg/dL Urine Ketones 1+ H (Negative) mg/dL Ur Blood (Man) Negative (Negative) Urine Nitrate Negative (Negative) Urine Bilirubin Negative (Negative) Urine Urobilinogen 1.0 (<2.0) mg/dL Leukocyte Esterase Rfl 1+ H (Negative) NEDRA/UL Urine RBC 0-2 (0-2) /hpf Urine WBC 21-50 H (0-3) /hpf Ur Squamous Epith Cells Few (Few) /hpf Urine Bacteria 1+ H /hpf Urine Casts 0-2 POC Urine HCG, Qual Negative (Negative) Imaging Data Radiologist's impression: ITS Impressions Abdomen/Pelvis CT 06/21/25 21:35 IMPRESSION: 1. Diffuse hepatic steatosis. No acute intra-abdominal/pelvic process. Discharge Plan Discharge Clinical Impression: Gastroenteritis, Abnormal urinalysis Patient Disposition: Home Condition: Stable Instructions: Antibiotic Form, Urinary Tract Infection in Women (DC), Acute Nausea and Vomiting (DC) Additional Instructions: Please take antibiotics as directed. Drink plenty fluids including water, Gatorade and Pedialyte. Take ondansetron as needed for pain. Take antibiotics as directed. Eat a bland diet including bananas, rice, applesauce and toast. Follow-up closely with her primary care provider. Return to the emergency department if you develop worsening or changing abdominal pain, fever, you are unable to tolerate food or fluids, or other concerning symptoms. Patient Language: Sinhala Prescriptions: New ondansetron 4 mg tablet,disintegrating 4 mg PO Q8H Qty: 14 0RF cefdinir 300 mg capsule 300 mg PO Q12H Qty: 14 0RF No Action buspirone 10 mg tablet escitalopram oxalate 20 mg tablet 20 mg PO DAILY lamotrigine 200 mg tablet 200 mg PO DAILY drospirenone-ethinyl estradiol 3-0.02 mg tablet 1 tablet PO DAILY Follow-up/Referrals: Misti,MIGUEL Saab [Primary Care Provider] - Stand Alone Forms: Work/School Release IP
--- OUTSIDE RECORDS SUMMARY | 2025-06-21 21:00 | XMS_ITS | Clinical Summary ---
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 Respiratory Rate 18 12/12/2022 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
[2025-06-21] MEDS: SODIUM CHLORIDE 0.9% IV 1,000 ML 999 ML IV CONT (21:05)
[2025-06-21] MEDS: KETOROLAC 30 MG/ML VIAL (*BKC) IV PUSH (21:05)
[2025-06-21] MEDS: ONDANSETRON INJ 4 MG/2 ML VIAL IV PUSH (21:05)
[2025-06-21] MEDS: cefTRIAXone 1 GM in SODIUM CHLORIDE 0.9% IV 50 ML 100 ML IVPB (22:06)
[2025-06-21] MEDS: DICYCLOMINE HCL INJ 20 MG/2 ML VIAL IM (22:07)
[2025-06-21] MEDS: METOCLOPRAMIDE HCL INJ 10 MG/2 ML VIAL IV PUSH (22:07)
== END 2025-06-21 22:51 | disposition home or self-care (01) ==
PROVIDERS: Student in an Organized Health Care Education/Training Program; Emergency Provider Physician Assistant; PCP Physician Assistant
DX: K52.9 Noninfective gastroenteritis and colitis, unspecified (principal); R82.90 Unspecified abnormal findings in urine; F41.9 Anxiety disorder, unspecified
CPT/HCPCS: 36415; 74177; 80053; 81001; 81025; 83690; 85025; 87086; 96361; 96365; 96372; 96375; 99284; J0500; J0696; J1885; J2405; J2765; J7030; Q9967

== ENCOUNTER 2025-09-16 11:40 | Emergency (ER) | payer OTHER, SELFPAY ==
--- NOTE | 2025-09-16 11:43 | ED.URI ---
HPI - URI/Sore Throat General Chief Complaint: Upper Respiratory Infection Stated Complaint: May have COVID Time Seen by Provider: 09/16/25 11:45 Source: patient Mode of arrival: ambulatory Limitations: no limitations History of Present Illness HPI Narrative: Patient is a 20-year-old female who presents with body aches for 2 days, cough started yesterday and fever started last night. Patient has not taken anything for symptoms. Denies any nausea, vomiting, diarrhea. Related Data Home Medications ?Medication ?Instructions ?Recorded ?Confirmed ?Last Taken ?Type escitalopram oxalate 20 mg tablet 20 mg PO DAILY 11/06/19 02/06/24 Unknown History drospirenone 3 mg-ethinyl 1 tablet PO DAILY 02/06/24 09/16/25 Unknown History estradiol 0.02 mg tablet lamotrigine 200 mg tablet 200 mg PO DAILY 02/06/24 09/16/25 Unknown History buspirone 10 mg tablet mg 06/21/25 Unknown History Allergies Allergy/AdvReac Type Severity Reaction Status Date / Time clindamycin Allergy Intermediate Hives / Verified 09/16/25 11:42 Red Face Review of Systems Review of Systems: All systems reviewed & are unremarkable except as noted in HPI and below Constitutional: Constitutional: Denies chills, Reports fatigue, Reports fever(s), Denies headache(s), Denies malaise and Denies weakness Eyes: Eyes: Denies blurry vision, Denies itchy eyes and Denies loss of vision ENT: Denies otalgia, Denies headache(s), Denies nasal congestion, Denies sinus pain and Denies sore throat Cardiovascular: Cardiovascular: Denies chest pain, Denies irregular heart rhythm and Denies dyspnea Respiratory: Respiratory: Denies cough and Denies dyspnea Gastrointestinal: Gastrointestinal: Denies abdominal pain, Denies diarrhea, Denies nausea and Denies vomiting Musculoskeletal: Musculoskeletal: Denies back pain, Reports myalgias and Denies arthralgias Integumentary/Breasts: Skin/Breast: Denies pruritus and Denies rash Neurologic: Denies headache(s), Denies loss of vision and Denies weakness Psychiatric: Psychiatric: Reports no additional psychiatric complaints Endocrine: Endocrine: Denies fatigue Allergic/Immunologic: Allergic/Immunologic: Denies itchy eyes PMFSH Past Medical History Medical History Anxiety Surgical History Surgical History History of tonsillectomy and adenoidectomy Social History Social History Smoking status: Never smoker Living arrangements: with family Occupation/Education: student Gender identity (if verbalized by the patient): Female Comments At time of signature, agree with nursing past medical, surgical, social and family history. There is no relevant family history pertinent to the presenting complaint. Exam Const: General: cooperative, healthy appearing, comfortable, no acute distress and well nourished Nutritional Appearance: well nourished Orientation/consciousness: patient oriented x3 Limitations: no limitations HENMT: Head: normal to inspection, normocephalic and atraumatic Ears: hearing grossly normal bilaterally, external ears normal, TM's normal bilaterally, EAC's normal and no periauricular adenopathy Face/Nose/Sinus: Normal external nose present, Abnormal mucous membranes and turbinates present erythematous bilateral and diffuse, normal facial exam, sinuses nontender and face symmetric Face and sinus: normal facial exam, sinuses nontender and face symmetric Mouth: Yes Normal oral and palatal mucosa present, Yes lip normal, Yes tongue normal, Yes Normal salivary glands and ducts present, Yes oropharynx normal and Yes moist mucous membranes Teeth and gingiva: dentition normal Throat: posterior oropharynx normal, tonsils normal and uvula midline Eyes: General: appearance normal, both eyes and all related structures Alignment and Position: alignment normal and position normal Periorbital: periorbital findings normal Eyelids: eyelids normal Pupils: Equal, round and reactive pupils present Neck: Neck: normal visual inspection, full ROM, no lymphadenopathy and supple Chest: Chest palpation & inspection: normal inspection of the chest and normal palpation of entire chest wall Resp: Effort & Inspection: normal respiratory effort and able to speak in complete sentences Auscultation: clear to auscultation bilaterally, no crackles, no rales, no rhonchi and no wheezes Cardio: Rate: regular rate Rhythm: regular rhythm Heart sounds: S1 normal heart sound present and S2 normal heart sound present GI: Inspection: normal to inspection Skin: General skin exam: normal color and no rashes or lesions noted Neuro: General: patient oriented x3 and moves all extremities Cranial nerves: Yes Equal, round and reactive pupils present Speech: normal speech Gait exam (Neuro): Normal gait present Extrem: General: normal to inspection, full ROM and no edema Psych: Appearance: grossly normal and well kempt Mental Status: mental status grossly normal Speech and movement: Normal speech and movement present Affect: normal affect Attitude: cooperative Thought process: Normal thought process present Course Course Emergency Course: Discharge instructions reviewed with patient, as well as provided in writing per nursing staff. The instructions also include specific and strict return/GO TO THE ER as well as f/u information. All questions have been answered, and the patient deny any further questions with discharge and discharge plan. Portions of this record may have been created with voice recognition software Level of Care: Express Care Visit Vital Signs Vital signs: Vital Signs Temperature 36.8 C 09/16/25 11:51 Pulse Rate 70 09/16/25 11:51 Respiratory Rate 20 09/16/25 11:51 Blood Pressure 127/76 09/16/25 11:51 Pulse Oximetry 100 09/16/25 11:51 Oxygen Delivery Room Air 09/16/25 11:51 Temperature 36.8 C 09/16/25 11:51 Pulse Rate 70 09/16/25 11:51 Respiratory Rate 20 09/16/25 11:51 Blood Pressure 127/76 09/16/25 11:51 Pulse Oximetry 100 09/16/25 11:51 Oxygen Delivery Room Air 09/16/25 11:51 Reviewed MDM - URI/Sore Throat MDM Narrative Medical decision making narrative: Pt well hydrated appearing, in no respiratory distress, hemodynamically stable. Recommend supportive care. The patient is stable at time of discharge the clinical impression was discussed and the patient was given the opportunity to ask questions, which were addressed as completely as possible given the information available at present. Anticipatory guidance and return to care precautions were discussed and the importance of primary care follow-up was stressed and encouraged. The patient voiced understanding of the plan, indications to return, and the need for follow-up. Exam findings show no acute concerns or changes Patient is appropriate for outpatient treatment and follow-up. Differential diagnosis considered: [place] virus, strep pharyngitis, allergic rhinitis, upper respiratory tract infection, sinusitis, rhinosinusitis, nasopharyngitis. viral pharyngitis, otitis media, otitis externa, otitis effusion, foreign body, cerumen impaction, viral syndrome, and influenza.? Medical Records Attestation: I reviewed the patient's medical records. Lab Data Attestation: I reviewed the patient's lab results. Labs: Lab Results 09/16/25 Range/Units 11:49 POC Influenza A Ag Negative (Negative) POC Influenza B Ag Negative (Negative) POC SARS CoV-2 Ag Negative (Negative) Discharge Plan Discharge Clinical Impression: Upper respiratory infection with cough and congestion Patient Disposition: Home Condition: Stable Instructions: Upper Respiratory Infection (ED) Additional Instructions: Your Covid and flu are both negative Your symptoms are likely due to a viral illness, which is not treated with antibiotics. Viral symptoms can be present for up to a few weeks. -For pain/fever, you may take: Tylenol 650-1000mg by mouth every 4-6 hours. Do not exceed 4000mg in 24 hours. Advil (Ibuprofen) 600 mg by mouth every 6 hours. Do not exceed 2400mg in 24 hours. 8 AM: Tylenol 11 AM: Ibuprofen 2 PM: Tylenol 5 PM: Ibuprofen 8 PM: Tylenol 11 PM: Ibuprofen 2 AM: Tylenol 5 AM: Ibuprofen -Antihistamine medication such as Benadryl/Zyrtec at night and Claritin/[place] during the day can help improve symptoms. -Use Flonase twice a day for 5 days then daily to help reduce the inflammation and dry up your sinuses. -You can also use Sudafed behind the pharmacy counter(12 or 24 hour). Be sure to drink plenty of water with these medications at least 8 ounces with every dose and it is important to drink 8 to 10 glasses of water per day. Water is a natural decongestant -Eat and drink things that are easy to swallow, like tea or soup, or popsicles. -Oral rinses such as: Salt water gargles and/or may use topical anesthetic (eg. Chloraseptic spray) or lozenges to relieve dryness or throat pain). -Frequent hand washing or hand applied mathematician is one of the best ways to prevent spread of infection. -Using a vaporizer or humidifier at night will also help thin secretions and help with coughing up phlegm. Call your Primary Care Doctor and make a follow-up appointment in 3 days. If your cough worsens, you develop a fever greater than 103, you develop shaking chills, a fast heartbeat, trouble breathing and/or feel you are are breathing much faster than usual, call your Primary Care Doctor or go to the ER. Patient Language: Tristanian Prescriptions: New benzonatate 100 mg capsule 100 mg PO BID PRN (Reason: cough) Qty: 14 0RF ibuprofen 600 mg tablet 600 mg PO TID PRN (Reason: fever or pain) Qty: 30 0RF fluticasone propionate [Flonase Allergy Relief] 50 mcg/actuation spray,suspension 1 spray intranasal DAILY Qty: 16 0RF Rx Instructions: administer into each nostril No Action buspirone 10 mg tablet escitalopram oxalate 20 mg tablet 20 mg PO DAILY lamotrigine 200 mg tablet 200 mg PO DAILY drospirenone-ethinyl estradiol 3-0.02 mg tablet 1 tablet PO DAILY Follow-up/Referrals: Ta Blancas MD [Physician, Family Practice] - 3 Days Referral Note: . She care Stand Alone Forms: Work/School Release IP Time of Disposition: 12:52
[2025-09-16 11:51] VITALS: BP 127/76; PULSE 70; RESP 20; TEMP 36.8; O2SAT 100
[2025-09-16 12:13] LABS: EDCOVIDSCREEN Negative (Negative); EDINFLUASCREEN Negative (Negative); EDINFLUBSCREEN Negative (Negative)
== END 2025-09-16 12:55 | disposition home or self-care (01) ==
PROVIDERS: Emergency Provider Nurse Practitioner Family
DX: J06.9 Acute upper respiratory infection, unspecified (principal); R05.9 Cough, unspecified; Z20.822 Contact with and (suspected) exposure to COVID-19; F41.9 Anxiety disorder, unspecified
CPT/HCPCS: 87426; 87804; 99213; G0463

== ENCOUNTER 2025-10-03 07:36 | Emergency (ER) | payer OTHER, SELFPAY ==
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
[2025-10-03 07:41] VITALS: BP 140/92; PULSE 91; RESP 18; TEMP 36.9; O2SAT 99
[2025-10-03] MEDS: LIDOCAINE 5% PATCH 1 PATCH TRANSDERM (10:34)
[2025-10-03] MEDS: DICLOFENAC SOD 75 MG TABLET.EC PO (10:34)
[2025-10-03] MEDS: CYCLOBENZAPRINE HCL 10 MG TABLET PO (10:34)
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
[2025-10-03] MEDS: HYDROcodone/acetaminophen (*CRX) 5-325 MG TABLET 1 TAB PO (12:00)
[2025-10-03] MEDS: ONDANSETRON HCL ODT 4 MG TABLET (13:50)
[2025-10-03 15:12] VITALS: BP 108/65; PULSE 73; RESP 15; O2SAT 97
== END 2025-10-03 15:14 | disposition home or self-care (01) ==
DX: S09.90XA Unspecified injury of head, initial encounter (principal); E28.2 Polycystic ovarian syndrome; G90.A Postural orthostatic tachycardia syndrome [POTS]; F41.9 Anxiety disorder, unspecified; M47.812 Spondylosis without myelopathy or radiculopathy, cervical region; Z79.899 Other long term (current) drug therapy; V40.5XXA Car driver injured in collision with pedestrian or animal in traffic accident, initial encounter
CPT/HCPCS: 70450; 72125; 96374; 99284; A9270; J2405

== ENCOUNTER 2025-10-10 12:07 | Emergency (ER) | payer OTHER, SELFPAY ==
[2025-10-10 12:13] VITALS: BP 126/79; PULSE 91; RESP 16; TEMP 36.4; O2SAT 95
--- OUTSIDE RECORDS SUMMARY | 2025-10-10 13:25 | XMS_ITS | Clinical Summary ---
Author Organization [facility] Address [address] [place] [id number] Care Team Providers Care Page Makeup System Operator Name Role Phone None, Provider MD Primary [...] on file Legal Sex Female 9:38 PM TERMINAL SUPERVISOR Gender Identity Not on file Sexual Orientation Not on file Last Filed Vital Signs Vital Sign Reading Time Taken Comments Blood Pressure 130/81 12/12/2022 7:56 AM TERMINAL SUPERVISOR Pulse 78 12/12/2022 7:56 AM TERMINAL SUPERVISOR Temperature 36.8 C (98.2 F) 12/12/2022 7:56 AM TERMINAL SUPERVISOR Respiratory Rate 18 12/12/2022 7:56 AM TERMINAL SUPERVISOR Oxygen Saturation 98% 12/12/2022 7:56 AM TERMINAL SUPERVISOR Inhaled Oxygen Concentration - - Weight 89.9 kg (198 lb 3.1 oz) 12/11/2022 9:46 P M TERMINAL SUPERVISOR Height 162.6 cm (5' 4) 12/11/2022 9:46 PM TERMINAL SUPERVISOR Body Mass Index 34.02 12/11/2022 9:46 PM TERMINAL SUPERVISOR Plan of Treatment Health Maintenance Due Date Last Done Comments Cervical Cancer Screening Pap Smear (Age 21 to 29) Every 3 Years 2003 Cervical Cancer Screening 2003 Annual Physical 2006 Hepatitis C 2021 DTaP, Tdap and Td Vaccines (7 - Td or Tdap) 06/04/2024 06/04/2014, 03/28/2007, 06/19/2004, Additional history exists COVID-19 Vaccine ( season) 2025 03/23/2021, 03/02/2021 Influenza Adult (#1) 2025 09/05/2020 Pneumococcal Vaccine: Pediatrics (0 to 5 Years) and At-Risk Patients (6 to 49 Years) Aged Out 2003 No longer eligible based on patient's age to complete this topic Hepatitis B Vaccines Completed 2003, 2003, 2003 HPV Vaccines Completed 08/12/2017, 06/25/2016 Hepatitis A Vaccines Completed 09/05/2020, 08/12/20 17 Meningococcal Vaccine Completed 09/05/2020, 014 Meningococcal B Vaccine Completed 02/01/2021, 09/05 RSV Immunizations Under 20 Months Aged Out No longer eligible based on patient's age to complete this topic Insurance Care Teams Page Makeup System Operator Relationship Specialty Start Date End Date None, Provider, MD PCP - General UNKNOWN PHYSICIAN SPECIALTY 12/11/22
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
--- OUTSIDE RECORDS SUMMARY | 2025-10-10 15:26 | XMS_ITS | Clinical Summary ---
Author Organization [facility] Address [address] [place] [id number] Care Team Providers Care Quiller Runner Name Role Phone None, Provider MD Primary [...] on file Legal Sex Female 9:38 PM COOLER SERVICER Gender Identity Not on file Sexual Orientation Not on file Last Filed Vital Signs Vital Sign Reading Time Taken Comments Blood Pressure 130/81 12/12/2022 7:56 AM COOLER SERVICER Pulse 78 12/12/2022 7:56 AM COOLER SERVICER Temperature 36.8 C (98.2 F) 12/12/2022 7:56 AM COOLER SERVICER Respiratory Rate 18 12/12/2022 7:56 AM COOLER SERVICER Oxygen Saturation 98% 12/12/2022 7:56 AM COOLER SERVICER Inhaled Oxygen Concentration - - Weight 89.9 kg (198 lb 3.1 oz) 12/11/2022 9:46 P M COOLER SERVICER Height 162.6 cm (5' 4) 12/11/2022 9:46 PM COOLER SERVICER Body Mass Index 34.02 12/11/2022 9:46 PM COOLER SERVICER Plan of Treatment Health Maintenance Due Date [...] to complete this topic Insurance Care Teams Quiller Runner Relationship Specialty Start Date End Date None, Provider, MD PCP - General UNKNOWN PHYSICIAN SPECIALTY 12/11/22
== END 2025-10-10 14:31 | disposition home or self-care (01) ==
LOC: ANHED 14:28
PROVIDERS: Emergency Provider Physician Assistant
DX: S06.0X0D Concussion without loss of consciousness, subsequent encounter (principal)
CPT/HCPCS: 99281

== ENCOUNTER 2025-11-09 02:51 | Emergency (ER) | payer OTHER, SELFPAY ==
[2025-11-09 03:32] VITALS: BP 144/75; PULSE 89; RESP 14; TEMP 36.9; O2SAT 97
--- NOTE | 2025-11-09 03:48 | PC.NURSE ---
0345- Pt. called back to triage for blood work and EKG. Pt. stated to this tech that she would like to leave. product inspection supervisor made aware. Pt. left department with family member via wheelchair.
== END 2025-11-09 03:45 | disposition left against medical advice (07) ==
PROVIDERS: Emergency Provider Student in an Organized Health Care Education/Training Program
DX: R55 Syncope and collapse (principal)
CPT/HCPCS: 82948; 99199

== ENCOUNTER 2025-11-12 11:23 | Emergency (ER) | payer OTHER, SELFPAY ==
[2025-11-12 11:36] VITALS: BP 111/57; PULSE 84; RESP 18; TEMP 36.8; O2SAT 99
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
== END 2025-11-12 12:18 | disposition home or self-care (01) ==
DX: I80.8 Phlebitis and thrombophlebitis of other sites (principal); F41.9 Anxiety disorder, unspecified
CPT/HCPCS: 99212; G0463

== ENCOUNTER 2025-11-20 04:39 | Emergency (ER) | payer OTHER, SELFPAY ==
[2025-11-20] VITALS (29 sets, daily range): BP systolic 101–151; BP diastolic 64–99; PULSE 85–117; RESP 14–18; TEMP 36.7–37.4; O2SAT 95–100
--- NOTE | ~2025-11-20 | XR_ITS ---
EXAMINATION: XR chest 1V portable DATE: 11/20/2025 10:42 INDICATION: Emesis. Hemoptysis. TECHNIQUE: Single AP view of the chest was obtained. COMPARISON: Chest radiograph dated 09/02/24 FINDINGS: The lungs are clear with no focal airspace opacities, pulmonary edema, pleural effusion or pneumothorax. The cardiomediastinal silhouette is normal. Visualized bones and soft tissues are unremarkable. IMPRESSION: 1. No acute cardiopulmonary disease. Reviewed, dictated and finalized at location A. [employer]
[2025-11-20 05:12] LABS: BEDSIDEPREGUCG Negative (Negative)
[2025-11-20 05:26] LABS: Add Urine Microscopic? YES; Appearance Urine Turbid (Clear); Glucose Urine UA Negative (Negative); Leukocyte Esterase Ur Negative LEU/UL (Negative); Need Manual Microscopic Reviewed; Nitrate Urine Negative (Negative); Non Pathogenic Casts 0-2; Specific Grav Ur 1.030 (1.001-1.035)
[2025-11-20 07:15] LABS: Hematocrit 41.6 % (37.0-47.0); Hemoglobin 13.9 g/dL (12.0-15.0); Immature Granulocyte Percent A 0.3 % (0-0.5); Lymphocytes Absolute Auto 1.20 K/mm3 (0.9-3.2); Mean Corpuscular HGB Conc 33.4 g/dl (32-36); Mean Corpuscular Hemoglobin 29.0 pg (26-34); Mean Corpuscular Volume 86.8 fl (80-100); Nucleated Red Blood Cells Absolute Auto 0.000 K/mm3 (0.0-0.012); Nucleated Red Blood Cells Perc 0.0 % (0.0-0.2); Platelet Count Result 230 k/mm3 (150-375); Red Blood Count 4.79 M/mm3 (4.2-5.4); White Blood Count 10.0 K/mm3 (4.5-10.0)
[2025-11-20] MEDS: ONDANSETRON INJ 4 MG/2 ML VIAL IV PUSH (07:21)
[2025-11-20] MEDS: PANTOPRAZOLE SODIUM IV 40 MG VIAL IV PUSH (07:21)
[2025-11-20] MEDS: LACTATED RINGERS 1,000 ML 999 ML IV CONT (07:21)
[2025-11-20 07:25] LABS: INR 1.1; Partial Thromboplastin Time 30.5 Seconds (22.3-36.8); Prothrombin Time 14.5 Seconds (11.1-14.7)
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
[2025-11-20 08:00] LABS: Gastric Negative Control Negative; Gastric Positive Control Positive
[2025-11-20 08:07] LABS: Alanine Aminotransferase 185 U/L (6-35); Albumin Level 4.5 g/dL (3.5-5.1); Alkaline Phosphatase 91 U/L (38-126); Anion Gap 9 mmol/L (4-12); Aspartate Amino Transferase 118 U/L (14-36); Bilirubin,Total 0.6 mg/dL (0.2-1.3); Blood Urea Nitrogen 11 mg/dL (7-17); Calcium 9.1 mg/dL (8.4-10.2); Carbon Dioxide 27 mmol/L (22-30); Chloride 103 mmol/L (98-107); Estimated CRCL calculation 138 ml/min; Estimated Glomerular Filt Rate > 60; Glucose 112 mg/dL (65-110); Potassium 4.0 mmol/L (3.4-5.0); Sodium 139 mmol/L (137-145); Total Protein 7.7 g/dL (6.3-8.2)
--- OUTSIDE RECORDS SUMMARY | 2025-11-20 08:45 | XMS_ITS | Clinical Summary ---
Author Organization [facility] Address [address] [place] [id number] Care Team Providers Care Statement Processor Name Role Phone None, Provider MD Primary [...] on file Legal Sex Female 9:38 PM [employer] Gender Identity Not on file Sexual Orientation Not on file Last Filed Vital Signs Vital Sign Reading Time Taken Comments Blood Pressure 130/81 12/12/2022 7:56 AM TARIFF EXPERT Pulse 78 12/12/2022 7:56 AM [employer]ARIFF EXP[employer] Temperature 36.8 C (98.2 F) 12/12/2022 7:56 AM TARIFF EXPERT Respiratory Rate 18 12/12/2022 7:56 AM TARIFF EXPERT Oxygen Saturation 98% 12/12/2022 7:56 AM TARIFF EXPERT Inhaled Oxygen Concentration - - Weight 89.9 kg (198 lb 3.1 oz) 12/11/2022 9:46 P M [employer]AR[employer] EXP[employer] Height 162.6 cm (5' 4) 12/11/2022 9:46 PM [employer]ARIFF EXP[employer] Body Mass Index 34.02 12/11/2022 9:46 PM TARIFF EXPERT Plan of Treatment Health Maintenance Due Date [...] to complete this topic Insurance Care Teams Statement Processor Relationship Specialty Start Date End Date None, Provider, MD PCP - General UNKNOWN PHYSICIAN SPECIALTY 12/11/22
== END 2025-11-20 11:20 | disposition home or self-care (01) ==
PROVIDERS: Emergency Medicine; Emergency Provider Emergency Medicine
DX: K92.0 Hematemesis (principal); F41.9 Anxiety disorder, unspecified; Z79.3 Long term (current) use of hormonal contraceptives; Z79.899 Other long term (current) drug therapy
CPT/HCPCS: 36415; 71045; 80053; 81001; 81025; 82271; 83986; 85025; 85610; 85730; 86850; 86900; 86901; 96361; 96374; 96375; 99284; J2405; J2470; J7120